=== PATIENT | male | born 1995 | race Caucasian/White ===

== ENCOUNTER 2025-06-23 06:44 | Day surgery (SDC) | payer OTHER ==
[2025-06-22 12:31] VITALS: BMI 27.2
[2025-06-23] MEDS ORDERED: AFRIN NASAL MIST 15 ML BOT ONE ×2 (07:26→08:00)
[2025-06-23] MEDS ORDERED: PROPOFOL 20 ML ONE (07:42)
[2025-06-23] MEDS ORDERED: Rocuronium Bromide 10 MG/ML (10ML VIAL) ONE (07:59)
[2025-06-23] MEDS ORDERED: Bacitracin 1 PK ONE (08:00)
[2025-06-23] MEDS ORDERED: Lidocaine 1% w/Epinephrine 1:200K 30 ML VIAL ONE (08:00)
[2025-06-23] MEDS ORDERED: Lidocaine 1% PF 5 ML VIAL ONE (08:01)
[2025-06-23] MEDS ORDERED: Ondansetron PF 4 MG/2 ML Vial ONE (08:27)
[2025-06-23] MEDS ORDERED: SUGAMMADEX SODIUM 200 MG/2 ML VIAL ONE (08:39)
[2025-06-23] MEDS ORDERED: Oxymetazoline HCl 0.05% (15 ML) ONE (08:42)
== END 2025-06-23 10:20 | disposition home or self-care (01) ==
LOC: CSHSDC 06:44
PROVIDERS: ATTEND Otolaryngology Plastic Surgery within the Head & Neck
PROC: 09SM4ZZ Reposition Nasal Septum, Percutaneous Endoscopic Approach (ICD-10-PCS; principal; 2025-06-23)
PROC: 09TV8ZZ Resection of Left Ethmoid Sinus, Via Natural or Artificial Opening Endoscopic (ICD-10-PCS; principal; 2025-06-23)
PROC: 099T8ZZ Drainage of Left Frontal Sinus, Via Natural or Artificial Opening Endoscopic (ICD-10-PCS; principal; 2025-06-23)
PROC: 099S8ZZ Drainage of Right Frontal Sinus, Via Natural or Artificial Opening Endoscopic (ICD-10-PCS; principal; 2025-06-23)
PROC: 099R8ZZ Drainage of Left Maxillary Sinus, Via Natural or Artificial Opening Endoscopic (ICD-10-PCS; principal; 2025-06-23)
PROC: 099X8ZZ Drainage of Left Sphenoid Sinus, Via Natural or Artificial Opening Endoscopic (ICD-10-PCS; principal; 2025-06-23)
PROC: 099Q8ZZ Drainage of Right Maxillary Sinus, Via Natural or Artificial Opening Endoscopic (ICD-10-PCS; principal; 2025-06-23)
PROC: 099W8ZZ Drainage of Right Sphenoid Sinus, Via Natural or Artificial Opening Endoscopic (ICD-10-PCS; principal; 2025-06-23)
PROC: 09TU8ZZ Resection of Right Ethmoid Sinus, Via Natural or Artificial Opening Endoscopic (ICD-10-PCS; principal; 2025-06-23)
DX: J34.2 Deviated nasal septum (principal); J34.3 Hypertrophy of nasal turbinates; J32.4 Chronic pansinusitis; J30.9 Allergic rhinitis, unspecified; K14.1 Geographic tongue; Z88.5 Allergy status to narcotic agent
CPT/HCPCS: J1100; J2405; J2704; J3010